=== PATIENT | female | born 1995 | race African-American/Black ===

== ENCOUNTER 2019-01-24 15:37 | Emergency (ER) | payer MEDICAID | END 2019-01-24 16:49 | disposition left against medical advice (07) | LOC: ER 15:37 | DX: Z53.21 Procedure and treatment not carried out due to patient leaving prior to being seen by health care provider (principal) ==

== ENCOUNTER 2022-05-10 08:28 | Emergency (ER) | payer MEDICAID, OTHER ==
[~2022-05-10] VITALS: Ht 165.1 cm; Wt 77.0 kg
[2022-05-10 09:41] VITALS: BP 99/57
== END 2022-05-10 12:41 | disposition left against medical advice (07) ==
LOC: ER 08:28
DX: Z53.21 Procedure and treatment not carried out due to patient leaving prior to being seen by health care provider (principal)